=== PATIENT | female | born 1945 | race Caucasian/White ===

== ENCOUNTER → 2017-06-18 | Outpatient (CLI) | payer OTHER ==
--- NOTE | 2017-06-19 07:19 | PAP/PSG TECHNICIAN REPORT ---
[facility] Gold Marker Polysomnogram Report Study name: None Report date: 06/19/2017 Study date: 06/18/2017 Referring Physician: Julio Harrison Name: ABELINO MYERS Interpreting Physician: Daren Short D.O. Date of : 1945 Gold Marker: Lorraine Linda [facility]. Sex: Female Age: 71 StudyType: PSG Weight: 110 lbs Height: 71 years, Height 5' 3" BMI: 19.48 Medications: Aspirin 81 mg, Memantine 5 mg, [id number] mg, Sertraline 25 mg Patient History 71 yr. old female here for a diagnostic sleep study with her oral appliance in use. Patient was non compliant with CPAP due to not remembering to use it at night. Patient has a history of rapidly declining memory, anxiety, depression and disrupted sleep. ESS 02/10. Parameters Monitored NPSG: E1-M2, E2-M1, Fp1-M2, Fp2-M1, F3-M2, F4-M2, F4-M1, C3-M2, C4-M2, C4-M1, O1-M2, O2-M2, O2-M1, T3-M2, T4-M1, P3-M2, P4-M1, CHIN1, CHIN2, HR, EKG, Legs, PFLOW, SNOR, FLOW, CFLOW, Tidal Volume, THOR, ABDO, SpO2, PLTH, CPRESS, ETCO2 Wave, ETCO2, pH Sleep Architecture Sleep Stages Time at Lights Off 9:21:24 PM STAGES Time (min.) TST (%) Time at Lights On 5:25:54 AM Wake 64.5 -- Total Recording Time (TRT) 484.50 min. N1 26.5 6 Total Sleep Period (TSP) 472.5 min. N2 286.5 68 Total Sleep Time (TST) 420.0min. N3 107.0 25 Awake Time 64.5 min. REM 0.0 0 Wake after Sleep Onset 52.5 min. Sleep Efficiency (SE) 87 % Sleep Onset Latency (CARMEN) 12.0 min. Number of Stage 1 Shifts None Awakenings 24 Stage Changes 106 Number of REM periods N/A REM 0.0 0 REM Latency NONE min. NREM 420.0 100 Body Position Analysis Supine Right Left Side Prone Vertical Total Sleep Time (min.) 324.4 153.8 0.0 153.77 0.0 0.0 Total Sleep Time (%) 63% 37% 0% 37 0% N/A% Total Sleep Time REM (min.) 0.0 0.0 0.0 None 0.0 0.0 Total Sleep Time NREM (min.) 266.2 153.8 0.0 None 0.0 0.0 Intermittent Wake (min.) 58.2 6.3 0.0 None 0.0 0.0 Total Sleep Period (%) 66% None None None None None Arousals Myoclonus (PLM) * Events Count Index Events Count Index Spontaneous 4 1 Events Awake (PLMW) 77 71.6 Respiratory 23 3.4 Events Asleep w/ Arousal (PLMA) 24 3.4 PLM 24 3 Events Asleep w/o Arousal (PLMS) 206 29.4 Snoring 13 2 Total Asleep 230 32.9 Total 64 9 Total 307 38 Respiratory Analysis * CA OA MA CH H RERA Total Count 0 40 0 0 67 4 107 Index 0.0 5.7 0.0 0 9.6 1 15.9 Mean Duration 0.0 29.3 0.0 0.00 39.3 28.4 35.3 Longest Duration 0.0 50.2 0.0 0.00 0.0 39.5 67.2 Respiratory Event Summary Total Supine ~Supine Right Left Prone REM NREM Apneas Count 40 38 2 2 N/A N/A N/A 40 Index 5.7 9 1 0.8 N/A N/A N/A 6 Hypopneas (4% Desat) Count 67 63 4 4 N/A N/A N/A 67 Index 9.6 14.2 2 1.6 N/A N/A N/A 9.6 Apneas & All Hypopneas Count 107 101 6 6 N/A N/A N/A 107 Index 15.3 23 2 2 N/A N/A N/A 15.3 Respiratory Events (Joint Sealer+All Hyp+RERA) Count 107 103 8 8 N/A N/A N/A 107 Index 15.9 23 3 3.1 N/A N/A N/A 15.9 Respiratory Related Arousal Count 23 103 2 2 N/A N/A N/A 24 Index 3.4 5 1 1 N/A N/A N/A 3 Snoring Analysis Supine Right Left Prone REM NREM Total Snore duration 11.5 min Snores count 280 122 N/A N/A N/A 402 402 Snore mean duration 1.7 Sec Snores index 63 48 N/A N/A N/A 57.4 57.4 TST with snoring (%) 2.7% Desaturation Event Summary: Minimum %SpO2 Event Count Mean/Min/Max Duration(sec.) Desaturation Index % Time In Bed > 90 85 43.6 / 22.8 / 60.0 10.9 98.1 86 - 90 0 N/A 0.0 1.9 81 - 85 0 N/A 0.0 0.0 76 - 80 0 N/A 0.0 0.0 71 - 75 0 N/A 0.0 0.0 66 - 70 0 N/A 0.0 0.0 61 - 65 0 N/A 0.0 0.0 56 - 60 0 N/A 0.0 0.0 51 - 55 0 N/A 0.0 0.0 < 50 0 N/A 0.0 0.0 Total REM NREM Awake <50% 0.0 min. 0.0 min. 0.0 min. 0.0 min. 51 - 60% 0.0 min. 0.0 min. 0.0 min. 0.0 min. 61 - 70% 0.0 min. 0.0 min. 0.0 min. 0.0 min. 71 - 80% 0.0 min. 0.0 min. 0.0 min. 0.0 min. 81 - 90% 8.9 min. 0.0 min. 8.1 min. 0.8 min. 91 - 100% 466.8 min. 0.0 min. 411.9 min. 54.9 min. Average 95 0 95 95 Minimum SpO2 87 N/A 87 89 Desaturation Event Index 10.5 0.0 12.0 0.9 # Desat. Events below 89% 11 N/A 11 N/A Time(%) with Saturation below 89% 0.4 0.0 0.4 0.0 Time(min.) with Saturation below 89% 1.9 0.0 1.9 0.0 Time (mins) REM (mins) NREM (mins) % of TST SpO2 Below 90% 28 N/A N28 0.8 SpO2 Below 88% 9 0 0 0 Heart Rate Analysis Min (bpm) Max (bpm) Average (bpm) Awake 49 127 60 NREM 46 71 55 REM N/A N/A N/A Overall 46 71 55 Supplemental O2 Values Minimum O2 level: None Value Start Time End Time Gold Marker Comments MS. Myers slept in the right and supine positions. Cardiac arrhythmia and PLMs noted. No bruxism noted. Snoring was noted and scored as a 0 on a scale of 0 through 5. (0=no snoring, 5=snoring loud enough to be heard through a closed door or down the paige way) MS. Myers awoke to use the restroom two times during the night. The final report will be interpreted and signed by a sleep physician. The completed physician report will then be placed in the patient medical record. Therapy (cm H2O) 0 TIB (min.) 484.5 TST (min.) 420.0 Sleep Onset (min.) 12.0 REM Onset From Sleep (min.) NONE Sleep Efficiency % 87 Wakefulness (%) 13 Wakefulness (min.) 64.5 NREM 1 (%) 6 NREM 1 (min.) 26.5 NREM 2 (%) 68 NREM 2 (min.) 286.5 NREM 3 (%) 25 NREM 3 (min.) 107.0 REM (%) 0 REM (min.) 0.0 # Arousals 64 Arousal Index 9 # Snore 402 Snore Index 57.4 AHI 15.3 AHI Supine 23 AHI Non-Supine 2 NREM AHI 15.3 REM AHI N/A RDI 15.9 # Obstructive Apnea 40 # Central Apnea 0 # Mixed Apnea 0 # Hypopneas 67 RERAs 4 Total Respiratory Events 111 Time Below SpO2 89% (min.) 1.9 Mean NREM SpO2 (%) 95 Mean REM SpO2 (%) N/A Mean Sleep SpO2 (%) 95 Min NREM SpO2 (%) 87 Min REM SpO2 (%) N/A Position Supine (min.) 324.4 Position Non-supine (min.) 153.8 LM Index Sleep 32.9 LM Index NREM 32.9 LM Index REM N/A Mean Heart Rate (bpm) 55 Min Heart Rate (bpm) 46
--- NOTE | 2017-06-22 08:27 | POLYSOMNOGRAPH REPORT ---
CLINICAL DATA: The patient is referred by Dr. Julio Harrison for a sleep study to be done while the patient is wearing an oral appliance. She is a 71-year-old female who has neurocognitive problems. She had a home sleep study done in 2017, which showed an apnea-hypopnea index of 16. She was unable to use nasal CPAP. The patient has a history of rapidly declining memory, anxiety, depression, and disrupted sleep. Her [place] sleepiness scale score is 12 out of a possible 24. This was an in-lab overnight polysomnography with the patient wearing an oral appliance. SLEEP ARCHITECTURE: The total sleep period was 472.5 minutes. The total sleep time was 420 minutes. Sleep efficiency was mildly reduced at 87%. The sleep onset latency was 12 minutes. Wake after sleep onset was 52.5 minutes. Sleep consisted of stage N1 6%, stage N2 68%, stage N3 25%, stage REM 0%. AROUSAL DATA: The patient had a total of 64 arousals including 4 spontaneous arousals, 23 respiratory arousals, 24 PLM arousals, and 13 snoring arousals. The arousal index was 9. PLM DATA: The patient had a total of 230 periodic limb movements of sleep for a PLM index of 32.9. There were 24 arousals associated with limb movements for a PLM arousal index of 3.4. EKG: The underlying cardiac rhythm was normal sinus. There was a very occasional extrasystole. The cardiac rates ranged from 46-71 beats per minute. The average heart rate was 55 beats per minute. RESPIRATORY DATA: The patient had a total of 107 respiratory events including 40 obstructive apneas and 67 hypopneas. Hypopneas were scored according to the 4% desaturation rule. The longest apnea was 50.2 seconds with an average apnea of 29.3 seconds. The mean duration of the hypopneas was 39.3 seconds. She also had 4 RERAs. The apnea-hypopnea index was moderately elevated at 15.3 events per hour. This reflects moderate sleep apnea. OXIMETRY DATA: The average saturation for the night was 95%. The minimum saturation was 87%. There was only 0.4 minutes with saturations less than 89%. PROPERTY MANAGEMENT ACCOUNTANT COMMENTS: Ms. Garcia slept in the right and supine positions. Cardiac arrhythmia and PLMs noted. No bruxism noted. The patient awakened to use the restroom 2 times during the night. IMPRESSIONS: 1. Moderate sleep apnea while wearing an oral appliance. 2. Periodic limb movement disorder. COMMENTS: The patient's sleep efficiency was mildly reduced. She had no REM sleep. She does take sertraline, which can suppress REM sleep. She did have a modest number of limb movements but with relatively few arousals. She has moderate sleep apnea which would be similar to what was observed with her baseline prior sleep study. Thus, she is still having events despite wearing an oral appliance. RECOMMENDATIONS: Followup is deferred to Dr. Harrison.
== END | disposition home or self-care (01) ==
LOC: C.NEUR 21:00
PROVIDERS: ATTEND Internal Medicine Critical Care Medicine
DX: G47.33 Obstructive sleep apnea (adult) (pediatric) (principal)

== ENCOUNTER → 2017-09-04 | Outpatient (CLI) | payer OTHER | END | disposition home or self-care (01) | LOC: C.LABBC 13:02 | PROVIDERS: ATTEND Psychiatry & Neurology Neurology | DX: R41.3 Other amnesia (principal) ==